=== PATIENT | female | born 1970 | race American Indian/Alaskan Native ===

== ENCOUNTER 2016-10-26 07:06 | Outpatient (CLI) | payer OTHER | END 2016-10-26 07:07 | disposition home or self-care (01) | LOC: MAMMO 07:06 | PROVIDERS: ATTEND Family Medicine | DX: Z12.31 Encounter for screening mammogram for malignant neoplasm of breast (principal); I10 Essential (primary) hypertension | CPT/HCPCS: 77067; G0202 ==